=== PATIENT | female | born 1960 | race African-American/Black ===

== ENCOUNTER 2017-11-15 12:20 | Day surgery (SDC) | payer BC ==
[2017-11-14 08:47] VITALS: BMI 25.8
[~2017-11-15 12:20] MED LIST: LACTATED RINGERS 1,000 ML IV SCH
[2017-11-15 13:15] VITALS: RESP 16; TEMP 97.9
[2017-11-15] MEDS ORDERED: LIDOCAINE 1% 20 ML VIAL (10MG/ML) FOR IV START INTRADERMA ONE (13:19)
[2017-11-15] MEDS ORDERED: PROPOFOL 10 MG/ML 20 ML VIAL IV ONE (13:46)
--- NOTE | 2017-11-15 13:47 | P.GSHP ---
History of Present Illness H&P Date: 11/15/17 Chief Complaint: Screening colonoscopy This is a 57-year-old female referred from Dr. Shannan schaeffer. Patient resents today for screening colonoscopy she denies a significant complaints. Past Medical History Past Medical History: Diabetes Mellitus, Eye Disorder, Hypertension Additional Past Medical History / Comment(s): BILAT GLAUCOMA History of Any Multi-Drug Resistant Organisms: None Reported Past Surgical History: No Surgical Hx Reported Additional Past Surgical History / Comment(s): COLONOSCOPY Past Anesthesia/Blood Transfusion Reactions: No Reported Reaction Smoking Status: Never smoker - Past Family History Mother Family Medical History: No Reported History Medications and Allergies Home Medications Medication Instructions Recorded Confirmed Type Benazepril HCl 10 mg PO DAILY 11/14/17 11/15/17 History Latanoprost Ophth [Xalatan 0.005%] 1 drop BOTH EYES HS 11/14/17 11/15/17 History amLODIPine BESYLATE [Norvasc] 2.5 mg PO DAILY 11/14/17 11/15/17 History metFORMIN HCL [Glucophage Xr] 500 mg PO DAILY 11/14/17 11/15/17 History Allergies Allergy/AdvReac Type Severity Reaction Status Date / Time Penicillins Allergy Rash/Hives Verified 11/14/17 08:42 Surgical - Exam Vital Signs Temp Pulse Resp BP Pulse Ox 97.9 F 91 16 152/84 100 11/15/17 13:08 11/15/17 13:08 11/15/17 13:08 11/15/17 13:08 11/15/17 13:08 - General well developed, no distress - Eyes PERRL - ENT normal pinna - Neck no masses - Respiratory normal expansion - Cardiovascular Rhythm: regular - Abdomen Abdomen: soft, non tender Assessment and Plan Assessment: We'll perform screening colonoscopy.
--- NOTE | 2017-11-15 14:02 | P.OP ---
Date of Procedure: 11/15/17 Preoperative Diagnosis: Screening colonoscopy Postoperative Diagnosis: Submucosal cecal lipoma Procedure(s) Performed: Colonoscopy Anesthesia: MAC Surgeon: Dillon Chapman Pathology: other (Cecal lipoma) Condition: stable Disposition: PACU Description of Procedure: The patient's placed on the endoscopy table lateral position. She received IV sedation. The digital rectal exam was performed which revealed no rebound. The flexible colonoscope was then placed patient anus passed throughout the entire colon. The ileocecal valve was visually is. The cecum there was a submucosal lipoma. This area is biopsied. The scope was withdrawn and the remainder ascending, transverse and descending and sigmoid colon was normal. Scope was brought back the rectum this appeared normal. Scope was withdrawn for patient.
[2017-11-15 14:21] VITALS: BP 143/87; PULSE 78
== END 2017-11-15 14:44 | disposition home or self-care (01) ==
LOC: ORWHC2ENDO 12:20
PROVIDERS: ATTEND Surgery
DX: Z12.11 Encounter for screening for malignant neoplasm of colon (principal); I10 Essential (primary) hypertension; D17.79 Benign lipomatous neoplasm of other sites; E11.9 Type 2 diabetes mellitus without complications; Z79.84 Long term (current) use of oral hypoglycemic drugs; H40.9 Unspecified glaucoma; Z79.899 Other long term (current) drug therapy
CPT/HCPCS: 88305; 45380; J2704

== ENCOUNTER 2018-11-26 23:31 | Emergency (ER) | payer BC ==
[2018-11-26 23:49] VITALS: TEMP 98.3
[2018-11-27 00:48] VITALS: BP 130/88; PULSE 72; RESP 20
[2018-11-27 00:48] LABS: Basophils % (A) 0 %; Eosinophils # (A) 0.1 k/uL (0-0.7); Eosinophils % (A) 2 %; HCT 42.1 % (34.0-46.0); HGB 13.2 gm/dL (11.4-16.0); Lymphocytes # (A) 2.1 k/uL (1.0-4.8); Lymphocytes % (A) 39 %; MCH 27.6 pg (25.0-35.0); MCHC 31.5 g/dL (31.0-37.0); MCV 87.6 fL (80.0-100.0); Mean Platelet Volume 8.1; Monocytes # (A) 0.2 k/uL (0-1.0); Monocytes % (A) 4 %; Neutrophils # (A) 2.9 k/uL (1.3-7.7); Neutrophils % (A) 53 %; Platelet Count 203 k/uL (150-450); RDW 13.6 % (11.5-15.5); WBC 5.5 k/uL (3.8-10.6)
[2018-11-27 00:57] LABS: ALT 25 U/L (9-52); AST 21 U/L (14-36); Albumin 4.6 g/dL (3.5-5.0); Alkaline Phosphatase 89 U/L (38-126); Anion Gap 10 mmol/L; Blood Urea Nitrogen 15 mg/dL (7-17); Calcium 11.1 mg/dL (8.4-10.2); Carbon Dioxide 27 mmol/L (22-30); Chloride 105 mmol/L (98-107); Glucose 116 mg/dL (74-99); Sodium 142 mmol/L (137-145); Total Bilirubin 0.5 mg/dL (0.2-1.3); Total Protein 7.9 g/dL (6.3-8.2)
--- NOTE | 2018-11-27 01:41 | ED ---
General Adult HPI - General Chief complaint: ENT Stated complaint: Twitch in jaw Time Seen by Provider: 11/27/18 00:11 Source: patient, RN notes reviewed, old records reviewed Mode of arrival: ambulatory Limitations: no limitations - History of Present Illness Initial comments: 58-year-old female patient past medical history of hypertension, type 2 diabetes presents to ER with left jaw muscle twitching. Patient states that she experienced this approximately one hour prior to presentation to ER. Patient states that she expresses for approximately 20 minutes. Patient denies any other complaints today. Patient currently asymptomatic. Patient states that she evaluated herself thoroughly. Patient denies any altered mental status, facial droop, paresthesias, upper or lower extremity weakness, dysfunction, paresthesias. Patient denies other complaints. Systemic: Pt denies fatigue, myalgia, fever/chills, rash. Pt denies weakness, night sweats, weight loss. Neuro: Pt denies headache, visual disturbances, syncope or pre-syncope. HEENT: Pt denies ocular discharge or irritation, otalgia, rhinorrhea, pharyngitis or notable lymphadenopathy. Cardiopulmonary: Pt denies chest pain, SOB, heart palpitations, dyspnea on exertion. Abdominal/GI: Pt denies abdominal pain, n/v/d. : Pt denies dysuria, burning w/ urination, frequency/urgency. Denies new onset urinary or bowel incontinence. MSK: Pt denies myalgia, loss of strength or function in extremities. Neuro: Pt denies new onset weakness, paresthesias. - Related Data Home Medications Medication Instructions Recorded Confirmed Benazepril HCl 10 mg PO DAILY 11/14/17 11/15/17 Latanoprost Ophth [Xalatan 0.005%] 1 drop BOTH EYES HS 11/14/17 11/15/17 amLODIPine BESYLATE [Norvasc] 2.5 mg PO DAILY 11/14/17 11/15/17 metFORMIN HCL [Glucophage Xr] 500 mg PO DAILY 11/14/17 11/15/17 Allergies Allergy/AdvReac Type Severity Reaction Status Date / Time Penicillins Allergy Rash/Hives Verified 11/26/18 23:50 Review of Systems ROS Statement: Those systems with pertinent positive or pertinent negative responses have been documented in the HPI. ROS Other: All systems not noted in ROS Statement are negative. Past Medical History Past Medical History: Diabetes Mellitus, Eye Disorder, Hypertension Additional Past Medical History / Comment(s): BILAT GLAUCOMA, History of Any Multi-Drug Resistant Organisms: None Reported Past Surgical History: No Surgical Hx Reported Additional Past Surgical History / Comment(s): COLONOSCOPY, Past Anesthesia/Blood Transfusion Reactions: No Reported Reaction Past Psychological History: No Psychological Hx Reported Smoking Status: Never smoker Past Alcohol Use History: None Reported Past Drug Use History: None Reported - Past Family History Mother Family Medical History: No Reported History General Exam - General Exam Comments Initial Comments: Constitutional: NAD, AOX3, Pt has pleasant affect. HEENT: NC/AT, trachea midline, neck supple, no lymphadenopathy. Posterior pharynx non erythematous, without exudates. External ears appear normal, without discharge. Mucous membranes moist. Eyes PERRLA, EOM intact. There is no scleral icterus. No pallor noted. Cardiopulmonary: RRR, no murmurs, rubs or gallops, no JVD noted. Lungs CTAB in anterior and posterior engle. No peripheral edema. Abdominal exam: Abdomen soft and non-distended. Abdomen non-tender to palpation in all 4 quadrants. Bowel sounds active in LLQ. No hepatosplenomegaly. No ecchymosis Neuro: CN II-XII intact. No nuchal rigidity. No focal deficit of facial droop. Full active range of motion in upper and lower extremities. Sensation intact. MSK: No posterior calf tenderness bilaterally, homans sign negative bilaterally. Posterior tibialis and radial pulse +2 bilaterally. Sensation intact in upper and lower extremities. Full active ROM in upper and lower extremities, 5/5 stregnth. Limitations: no limitations Course Vital Signs 11/26/18 11/27/18 23:47 00:48 Temperature 98.3 F Pulse Rate 77 72 Respiratory 17 20 Rate Blood Pressure 177/92 130/88 O2 Sat by Pulse 100 97 Oximetry Medical Decision Making - Medical Decision Making 58-year-old female patient past medical history of hypertension, type 2 diabetes presents to ER with left jaw muscle twitching. Patient states that she experienced this approximately one hour prior to presentation to ER. Patient states that she expresses for approximately 20 minutes. Patient denies any other complaints today. Patient currently asymptomatic. Patient states that she evaluated herself thoroughly. Patient denies any altered mental status, facial droop, paresthesias, upper or lower extremity weakness, dysfunction, paresthesias. Patient denies other complaints. Patient vital signs stable, afebrile. Physical exam displayed: CN II-XII intact. No nuchal rigidity. No focal deficit of facial droop. Full active range of motion in upper and lower extremities. Sensation intact. Laboratory investigations revealed noncompressive CBC, CMP revealed mildly elevated calcium of 11.1. Calcium comparable to previous laboratory investigation of 2016. Repeat neurologic exam within normal limits. Patient discharged. Patient to follow up with primary care provider in 1-2 days. Patient return to ER if condition worsens in any way. Return precautions. Case discussed with Dr. Thornton. - Lab Data Result diagrams: 11/27/18 00:40 11/27/18 00:40 Lab Results 11/27/18 11/27/18 Range/Units 00:40 00:40 WBC 5.5 (3.8-10.6) k/uL RBC 4.80 (3.80-5.40) m/uL Hgb 13.2 (11.4-16.0) gm/dL Hct 42.1 (34.0-46.0) % MCV 87.6 (80.0-100.0) fL MCH 27.6 (25.0-35.0) pg MCHC 31.5 (31.0-37.0) g/dL RDW 13.6 (11.5-15.5) % Plt Count 203 (150-450) k/uL Neutrophils % 53 % Lymphocytes % 39 % Monocytes % 4 % Eosinophils % 2 % Basophils % 0 % Neutrophils # 2.9 (1.3-7.7) k/uL Lymphocytes # 2.1 (1.0-4.8) k/uL Monocytes # 0.2 (0-1.0) k/uL Eosinophils # 0.1 (0-0.7) k/uL Basophils # 0.0 (0-0.2) k/uL Sodium 142 (137-145) mmol/L Potassium 4.0 (3.5-5.1) mmol/L Chloride 105 (98-107) mmol/L Carbon Dioxide 27 (22-30) mmol/L Anion Gap 10 mmol/L BUN 15 (7-17) mg/dL Creatinine 0.80 (0.52-1.04) mg/dL Est GFR (CKD-EPI)AfAm >90 (>60 ml/min/1.73 sqM) Est GFR (CKD-EPI)NonAf 82 (>60 ml/min/1.73 sqM) Glucose 116 H (74-99) mg/dL Calcium 11.1 H (8.4-10.2) mg/dL Total Bilirubin 0.5 (0.2-1.3) mg/dL AST 21 (14-36) U/L ALT 25 (9-52) U/L Alkaline Phosphatase 89 (38-126) U/L Total Protein 7.9 (6.3-8.2) g/dL Albumin 4.6 (3.5-5.0) g/dL Disposition Clinical Impression: Muscle spasm Disposition: HOME SELF-CARE Condition: Stable Instructions (If sedation given, give patient instructions): Muscle Spasm (ED) Additional Instructions: Patient to adhere to previously discussed treatment plan and will take medication(s) as directed. Patient to follow up with PCP in 1-2 days. Patient to return to ED if symptoms do not improve. Please follow-up with primary care provider in 1-2 days. Please return to ER if condition worsens in any way. Strict return precautions. Is patient prescribed a controlled substance at d/c from ED?: No Referrals: Shannan Garza DO [Primary Care Provider] - 1-2 days
== END 2018-11-27 01:46 | disposition home or self-care (01) ==
LOC: EC 23:31
DX: M62.838 Other muscle spasm (principal); R25.3 Fasciculation; E11.9 Type 2 diabetes mellitus without complications; I10 Essential (primary) hypertension; H40.9 Unspecified glaucoma; Z79.84 Long term (current) use of oral hypoglycemic drugs; Z79.899 Other long term (current) drug therapy; Z88.0 Allergy status to penicillin
CPT/HCPCS: 36415; 80053; 85025; 99284

== ENCOUNTER → 2019-02-14 | Outpatient (CLI) | payer BC ==
--- NOTE | 2019-02-14 16:25 | NM ---
EXAMINATION TYPE: NM parathyroid w/SPECT DATE OF EXAM: 02/14/2019 COMPARISON: NONE HISTORY: 58-year-old female hypercalcemia. TECHNIQUE: Following administration of 24 mCi Tc99m Sestamibi. Anterior projection images of the neck and chest were obtained 10 minutes and 3 hours post injection. SPECT images of the neck and chest were obtaine d and reconstructed in three axes. FINDINGS: Thyroid tracer washout: Delayed images demonstrate near-complete tracer washout from the thyroid. Parathyroid uptake: The two-hour delayed images demonstrate focal abnormal persistent uptake at the r ight lower thyroid lobe. Normal uptake: There is physiological tracer uptake in the salivary glands and thyroid gland. IMPRESSION: Persistent abnormal uptake localized to the lower right thyroid lobe suggestive of parathyroid adenom a.
== END | disposition home or self-care (01) ==
LOC: RADNMMAIN 11:16
PROVIDERS: ATTEND Family Medicine
DX: E83.52 Hypercalcemia (principal); Z88.0 Allergy status to penicillin
CPT/HCPCS: 78071; A9500

== ENCOUNTER → 2019-06-10 | Outpatient (CLI) | payer OTHER ==
[2019-06-10 14:19] LABS: Creatinine 24 Hour,Urine 1499.3 mg/24hr (800.0-1800.0)
[2019-06-11 00:16] LABS: Total Volume 24 Hour,Urine 1450 mL
[2019-06-11 00:35] LABS: Calcium 24 Hour,Urine 355.3 mg/24Hr (100.0-250.0)
== END | disposition home or self-care (01) ==
LOC: LABWHC1 07:33
PROVIDERS: ATTEND Surgery
DX: E83.52 Hypercalcemia (principal)
CPT/HCPCS: 36415; 81050; 82340; 82575; 84156

== ENCOUNTER 2019-10-31 06:02 | Day surgery (SDC) | payer BC, OTHER ==
[2019-10-29 11:35] VITALS: BMI 25.8
[~2019-10-31 06:02] MED LIST changes: +DEXAMETHASONE SOD PHOSPHATE 10 MG/ML 1 ML VIAL IV ONE; +HEPARIN SODIUM,PORCINE 5,000 UNIT/ML 1 ML VIAL SQ ONE; +LIDOCAINE 1% (10MG/ML) FOR IV START INTRADERMA PRN; +MIDAZOLAM 2 MG/2 ML VIAL IV PRN; +fentaNYL (PF) 50 MCG/ML 2 ML AMP IV PRN
[2019-10-31] MEDS ORDERED: ONDANSETRON 4 MG/2 ML VIAL IVP ONE ×2 (06:49→09:55)
[2019-10-31 06:55] LABS: Glucose,Whole Blood 101 mg/dL (75-99)
[2019-10-31] MEDS ORDERED: NEOSTIGMINE 1 MG/ML 10 ML VIAL ONE (07:49)
[2019-10-31] MEDS ORDERED: MIDAZOLAM 2 MG/2 ML VIAL ONE (07:49)
[2019-10-31] MEDS ORDERED: SUCCINYLCHOLINE CHLORIDE 100 MG/5 ML SYR IV ONE (07:49)
[2019-10-31] MEDS ORDERED: ROCURONIUM BROMIDE 10 MG/ML 5 ML VIAL IV ONE (07:49)
[2019-10-31] MEDS ORDERED: KETOROLAC 30 MG/ML 1 ML VIAL ONE (07:49)
[2019-10-31] MEDS ORDERED: GLYCOPYRROLATE 0.2 MG/ML 2 ML VIAL ONE (07:49)
[2019-10-31] MEDS ORDERED: fentaNYL (PF) 50 MCG/ML 2 ML AMP ONE (07:49)
[2019-10-31] MEDS ORDERED: PROPOFOL 10 MG/ML 20 ML VIAL IV ONE (07:49)
[2019-10-31] MEDS ORDERED: LIDOCAINE 1% INJ 10MG/ML (20 ML MDV) ONE (07:49)
--- NOTE | 2019-10-31 07:56 | P.GSHP ---
History of Present Illness H&P Date: 10/31/19 Chief Complaint: Right upper quadrant pain This a 59-year-old female who presents today for laparoscopic ostectomy. Patient's a quadrant quadrant pain. Her recent ultrasound shows evidence of cholelithiasis. Past Medical History Past Medical History: Diabetes Mellitus, Eye Disorder, Hypertension, Thyroid Disorder Additional Past Medical History / Comment(s): BILAT GLAUCOMA, hx parathyroid problem. Gallstones currently. History of Any Multi-Drug Resistant Organisms: None Reported Past Surgical History: No Surgical Hx Reported Additional Past Surgical History / Comment(s): COLONOSCOPY, Parathyroid procedure, kidney stone proc Past Anesthesia/Blood Transfusion Reactions: No Reported Reaction Smoking Status: Never smoker - Past Family History Mother Family Medical History: No Reported History Medications and Allergies Home Medications Medication Instructions Recorded Confirmed Type Benazepril HCl 10 mg PO DAILY 11/14/17 10/31/19 History Latanoprost Ophth [Xalatan 0.005%] 1 drop BOTH EYES HS 11/14/17 10/31/19 History amLODIPine BESYLATE [Norvasc] 2.5 mg PO DAILY 11/14/17 10/31/19 History metFORMIN HCL [Glucophage Xr] 500 mg PO DAILY 11/14/17 10/31/19 History Multivitamins, Thera [Multivitamin 1 tab PO DAILY 10/29/19 10/31/19 History (formulary)] Allergies Allergy/AdvReac Type Severity Reaction Status Date / Time Penicillins Allergy Rash/Hives Verified 10/31/19 06:35 Surgical - Exam Vital Signs Temp Pulse Resp BP Pulse Ox 98.1 F 84 16 151/69 100 10/31/19 06:40 10/31/19 06:40 10/31/19 06:40 10/31/19 06:40 10/31/19 06:40 - General well developed, well nourished, no distress - Eyes PERRL - ENT normal pinna - Neck no masses - Respiratory normal expansion - Cardiovascular Rhythm: regular - Abdomen Abdomen: soft, non tender Results - Labs Abnormal Lab Results - Last 24 Hours (Table) 10/31/19 Range/Units 06:44 POC Glucose (mg/dL) 101 H (75-99) mg/dL Assessment and Plan Assessment: Lithiasis. We'll perform laparoscopic cholecystectomy
[2019-10-31] MEDS ORDERED: BUPIVACAINE (PF) 0.5% 30 ML VIAL SQ ONE (08:15)
[2019-10-31 08:52] VITALS: TEMP 97.3
[2019-10-31 09:06] LABS: Glucose,Whole Blood 125 mg/dL (75-99)
--- NOTE | 2019-10-31 09:08 | P.OP ---
Date of Procedure: 10/31/19 Preoperative Diagnosis: Cholelithiasis Cholecystitis Postoperative Diagnosis: Cholelithiasis] Cholecystitis Procedure(s) Performed: Laparoscopic cholecystectomy Anesthesia: TY LLANES Surgeon: Dillon Chapman Estimated Blood Loss (ml): 5 Pathology: other (Gallbladder) Condition: stable Disposition: PACU Description of Procedure: The patient was placed on the operating table. The patient received a general endotracheal tube anesthesia. The patients abdomen was prepped and draped in the usual sterile fashion. Through an infraumbilical stab incision, the fascia of the anterior abdominal wall was grasped with a pair of Kochers and then the Veress needle was placed in the peritoneal cavity. Position of the Veress needle was confirmed with positive drop test. The abdomen was then insufflated. After adequate insufflation, the 10 mm trocar was placed in the peritoneal cavity. Following this the laparoscope was placed in the peritoneal cavity. The patient was placed in the head-up, right side up position and then a 5 mm trocar was placed in the right lateral and right subcostal position under direct visualization. A 8 mm trocar was placed in the epigastric position. The gallbladder was grasped in the fundus and infundibulum. Traction on the gallbladder was placed in the lateral and the cephalad positions. The triangle of Calot was visualized.. The cystic duct was bluntly dissected until the union of the cystic duct and common bile duct was seen. A critical view of safety was achieved. The cystic duct was then divided and sealed with the Harmonic scissors. A PDS Endoloop was then placed throughout the cystic duct stump. The cystic artery divided and sealed with the Harmonic scissors. The gallbladder was then removed from the liver bed using Harmonic scissors. The gallbladder was then extracted through the epigastric port site. Operative field was checked for any bleeding spots and Harmonic scissors was used to coagulate the liver bed. The abdomen was irrigated. The trocars were removed. The skin was closed using interrupted 3-0 Vicryl suture. Dermabond dressing were applied. The patient tolerated the procedure well.
[2019-10-31] MEDS ORDERED: HYDROcodone/APAP 5-325MG 1 EACH TAB PO ONE (10:08)
[2019-10-31] MEDS ORDERED: LACTATED RINGERS 1,000 ML IV ONE (10:34)
[2019-10-31 10:35] VITALS: BP 122/74; PULSE 77; RESP 18
== END 2019-10-31 10:40 | disposition home or self-care (01) ==
LOC: OR 06:02
PROVIDERS: ATTEND Surgery
DX: K80.10 Calculus of gallbladder with chronic cholecystitis without obstruction (principal); E11.9 Type 2 diabetes mellitus without complications; I10 Essential (primary) hypertension; H40.9 Unspecified glaucoma; E07.9 Disorder of thyroid, unspecified; Z79.899 Other long term (current) drug therapy; Z79.84 Long term (current) use of oral hypoglycemic drugs; Z88.0 Allergy status to penicillin; Z98.890 Other specified postprocedural states
CPT/HCPCS: 88304; 47562; J2250; J1644; J1100; J2710; J0690; J2405; J2001; J3010; J1885; J0330; J2704

== ENCOUNTER 2020-03-19 07:43 | Day surgery (SDC) | payer BC ==
[2020-03-17 15:40] VITALS: BMI 26.6
[~2020-03-19 07:43] MED LIST changes: -DEXAMETHASONE SOD PHOSPHATE 10 MG/ML 1 ML VIAL IV ONE; -HEPARIN SODIUM,PORCINE 5,000 UNIT/ML 1 ML VIAL SQ ONE; -LIDOCAINE 1% (10MG/ML) FOR IV START INTRADERMA PRN; -MIDAZOLAM 2 MG/2 ML VIAL IV PRN; -fentaNYL (PF) 50 MCG/ML 2 ML AMP IV PRN
[2020-03-19 08:05] VITALS: RESP 16; TEMP 98.8
[2020-03-19] MEDS ORDERED: LIDOCAINE 1% (10MG/ML) FOR IV START INTRADERMA ONE (08:16)
[2020-03-19 08:19] LABS: Glucose,Whole Blood 111 mg/dL (75-99)
[2020-03-19] MEDS ORDERED: fentaNYL (PF) 50 MCG/ML 2 ML AMP ONE (08:47)
[2020-03-19] MEDS ORDERED: LIDOCAINE 1% INJ 10MG/ML (20 ML MDV) ONE (08:47)
[2020-03-19] MEDS ORDERED: MIDAZOLAM 2 MG/2 ML VIAL ONE (08:47)
[2020-03-19] MEDS ORDERED: PROPOFOL 10 MG/ML 20 ML VIAL IV ONE (08:47)
--- NOTE | 2020-03-19 08:53 | P.GSHP ---
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 Patient's complaints of GERD and epigastric pain. Past Medical History Past Medical History: Diabetes Mellitus, Eye Disorder, Hypertension Additional Past Medical History / Comment(s): GLAUCOMA, hx parathyroid surgery., constipation., states stomach aches . History of Any Multi-Drug Resistant Organisms: None Reported Past Surgical History: No Surgical Hx Reported, Cholecystectomy Additional Past Surgical History / Comment(s): COLONOSCOPY, Parathyroid procedure, kidney stone proc Past Anesthesia/Blood Transfusion Reactions: No Reported Reaction Past Psychological History: No Psychological Hx Reported Smoking Status: Never smoker Past Alcohol Use History: None Reported Past Drug Use History: None Reported - Past Family History Mother Family Medical History: No Reported History Medications and Allergies Home Medications Medication Instructions Recorded Confirmed Type Benazepril HCl 10 mg PO DAILY 11/14/17 03/19/20 History Latanoprost Ophth [Xalatan 0.005%] 1 drop BOTH EYES HS 11/14/17 03/19/20 History metFORMIN HCL [Glucophage Xr] 500 mg PO DAILY 11/14/17 03/19/20 History amLODIPine BESYLATE 5 mg PO DAILY 03/17/20 03/19/20 History Allergies Allergy/AdvReac Type Severity Reaction Status Date / Time Penicillins Allergy Rash/Hives Verified 03/19/20 08:03 Surgical - Exam Vital Signs Temp Pulse Resp BP Pulse Ox 98.8 F 80 16 157/70 99 03/19/20 07:58 03/19/20 07:58 03/19/20 07:58 03/19/20 07:58 03/19/20 07:58 - General well developed, well nourished, no distress - Eyes PERRL - ENT normal pinna - Neck no masses - Respiratory normal expansion - Cardiovascular Rhythm: regular - Abdomen Abdomen: soft, non tender Results - Labs Abnormal Lab Results - Last 24 Hours (Table) 03/19/20 Range/Units 08:13 POC Glucose (mg/dL) 111 H (75-99) mg/dL Assessment and Plan Assessment: GERD, gastric pain. We'll perform EGD.
--- NOTE | 2020-03-19 08:58 | P.OP ---
Date of Procedure: 03/19/20 Preoperative Diagnosis: GERD Postoperative Diagnosis: Mild antral gastritis Mild esophagitis No evidence of hiatal hernia Procedure(s) Performed: EGD Anesthesia: MAC Surgeon: Dillon Chapman Pathology: other (Antrum, esophagus) Condition: stable Disposition: PACU Description of Procedure: Patient's placed on the endoscopy table in the lateral position. She received IV suture. Gastric was placed oropharynx passed in the esophagus and stomach. Scope was placed through the pylorus. The first and second portion of the duodenum appeared normal. Scope was then brought back the antrum this. Mildly inflamed. A biopsies performed. The scope was unretroflexed and remainder some appeared normal. The GE junction was at 40 cm. There was no significant hiatal hernia. The distal esophagus. Inflamed a biopsies performed the proximal esophagus appeared normal.
[2020-03-19 09:37] VITALS: BP 129/77; PULSE 64
== END 2020-03-19 09:46 | disposition home or self-care (01) ==
LOC: ORWHC2ENDO 07:43
PROVIDERS: ATTEND Surgery
DX: K29.50 Unspecified chronic gastritis without bleeding (principal); K21.9 Gastro-esophageal reflux disease without esophagitis; E11.9 Type 2 diabetes mellitus without complications; I10 Essential (primary) hypertension; H40.9 Unspecified glaucoma; R10.9 Unspecified abdominal pain; Z90.49 Acquired absence of other specified parts of digestive tract; Z98.890 Other specified postprocedural states; Z87.442 Personal history of urinary calculi; Z79.899 Other long term (current) drug therapy; Z88.0 Allergy status to penicillin
CPT/HCPCS: 88305; 43239; J2250; J2001; J3010; J2704

== ENCOUNTER 2020-07-03 16:00 | Emergency (ER) | payer BC ==
--- NOTE | 2020-07-03 18:35 | XR ---
EXAMINATION TYPE: XR femur RT DATE OF EXAM: 07/03/2020 COMPARISON: NONE HISTORY: Leg pain TECHNIQUE: 4 views FINDINGS: The knee joint is intact. Hip joint is intact. There is no sign of hip dysplasia. I see no fracture nor dislocation. There is no sign of knee joint effusion. IMPRESSION: Negative right femur exam.
--- NOTE | 2020-07-03 18:36 | XR ---
EXAMINATION TYPE: XR lumbar spine 2 or 3V DATE OF EXAM: 07/03/2020 COMPARISON: NONE HISTORY: Back pain TECHNIQUE: 4 views FINDINGS: Lumbar vertebra have normal alignment. Posterior elements are intact. There is no compressi on fracture. Sacroiliac joints are intact. IMPRESSION: Negative lumbar spine exam.
--- NOTE | 2020-07-03 19:05 | US ---
EXAMINATION TYPE: US venous doppler duplex LE RT DATE OF EXAM: 07/03/2020 6:55 PM COMPARISON: NONE CLINICAL HISTORY: pain. Intermittent right thigh pain x couple weeks SIDE PERFORMED: Right TECHNIQUE: The lower extremity deep venous system is examined utilizing real time linear array sonog dennis with graded compression, doppler sonography and color-flow sonography. VESSELS IMAGED: External Iliac Vein (EIV) Common Femoral Vein Deep Femoral Vein Greater Saphenous Vein * Femoral Vein Popliteal Vein Small Saphenous Vein * Proximal Calf Veins (* superficial vessels) Right Leg: Appears negative for DVT IMPRESSION: No sign of deep vein thrombosis in the right leg.
[2020-07-03] MEDS ORDERED: predniSONE 20 MG TAB PO STA (19:15)
--- NOTE | 2020-07-03 19:15 | ED ---
General Adult HPI - General Chief complaint: Extremity Injury, Lower Stated complaint: Pain in upper right leg Time Seen by Provider: 07/03/20 17:34 Source: patient, RN notes reviewed, old records reviewed Mode of arrival: ambulatory Limitations: no limitations - History of Present Illness Initial comments: 59-year-old female patient to ED for evaluation of right anterior thigh pain. She reports that the last week or so she's been having some waxing and waning sharp pain in her right anterior thigh. She also reports that she sometimes has some pain in her paralumbar region reading down the posterior gluteal region down the leg. Denies any weakness. Saddle anesthesia loss of bowel or bladder control recent falls or trauma. Systemic: Pt denies fatigue, fever/chills, rash. Pt denies weakness, night sweats, weight loss. Neuro: Pt denies headache, visual disturbances, syncope or pre-syncope. HEENT: Pt denies ocular discharge or irritation, otalgia, rhinorrhea, pharyngitis or notable lymphadenopathy. Cardiopulmonary: Pt denies chest pain, SOB, heart palpitations, dyspnea on exertion. Abdominal/GI: Pt denies abdominal pain, n/v/d. : Pt denies dysuria, burning w/ urination, frequency/urgency. Denies new onset urinary or bowel incontinence. MSK: Pt denies loss of strength or function in extremities. Neuro: Pt denies new onset weakness, paresthesias. - Related Data Home Medications Medication Instructions Recorded Confirmed Benazepril HCl 10 mg PO DAILY 11/14/17 03/19/20 Latanoprost Ophth [Xalatan 0.005%] 1 drop BOTH EYES HS 11/14/17 03/19/20 metFORMIN HCL [Glucophage Xr] 500 mg PO DAILY 11/14/17 03/19/20 amLODIPine BESYLATE 5 mg PO DAILY 03/17/20 03/19/20 Previous Rx's Medication Instructions Recorded predniSONE [Deltasone] 20 mg PO BID 4 Days #8 tab 07/03/20 Allergies Allergy/AdvReac Type Severity Reaction Status Date / Time Penicillins Allergy Rash/Hives Verified 07/03/20 16:13 Review of Systems ROS Statement: Those systems with pertinent positive or pertinent negative responses have been documented in the HPI. ROS Other: All systems not noted in ROS Statement are negative. Past Medical History Past Medical History: Diabetes Mellitus, Eye Disorder, Hypertension Additional Past Medical History / Comment(s): GLAUCOMA, hx parathyroid surgery., constipation., states stomach aches . History of Any Multi-Drug Resistant Organisms: None Reported Past Surgical History: Cholecystectomy Additional Past Surgical History / Comment(s): COLONOSCOPY, Parathyroid procedure, kidney stone proc Past Anesthesia/Blood Transfusion Reactions: No Reported Reaction Past Psychological History: No Psychological Hx Reported Smoking Status: Never smoker Past Alcohol Use History: None Reported Past Drug Use History: None Reported - Past Family History Mother Family Medical History: No Reported History General Exam - General Exam Comments Initial Comments: Constitutional: NAD, AOX3, Pt has pleasant affect. HEENT: NC/AT, trachea midline, neck supple, no lymphadenopathy. Posterior pharynx non erythematous, without exudates. External ears appear normal, without discharge. Mucous membranes moist. Eyes PERRLA, EOM intact. There is no scleral icterus. No pallor noted. Cardiopulmonary: RRR, no murmurs, rubs or gallops, no JVD noted. Lungs CTAB in anterior and posterior engle. No peripheral edema. Abdominal exam: Abdomen soft and non-distended. Abdomen non-tender to palpation in all 4 quadrants. Bowel sounds active in LLQ. No hepatosplenomegaly. No ecchymosis Neuro: CN II-XII grossly intact. No nuchal rigidity. No raccon eyes, no estevez sign, no hemotympanum. No cervical spinal tenderness. MSK: Anterior thigh nontender to palpation with no skin changes. No posterior calf tenderness bilaterally, homans sign negative bilaterally. Posterior tibialis and radial pulse +2 bilaterally. Sensation intact in upper and lower extremities. Full active ROM in upper and lower extremities, 5/5 stregnth. Limitations: no limitations Course Vital Signs 07/03/20 16:09 Temperature 97.1 F L Pulse Rate 91 Respiratory 20 Rate Blood Pressure 171/97 O2 Sat by Pulse 100 Oximetry Medical Decision Making - Medical Decision Making 59-year-old female patient to ED for anterior thigh pain. No current discomfort at this time. Patient also stable, afebrile. Patient reports that she just had all over her blood counts and chemisties checked by her PCP on monday and it was normal. Physical exam negative for acute pathology. She does report however that she also having pain radiating down the posterior aspect of her leg in the gluteal region. As well as some back pain. I will place patient on burst steroid treatment lumbar back pain with sciatica like radiculopathy. Will return with worsening symptoms. Case disucssed with Dr. Mar. Disposition Clinical Impression: Leg pain, Back pain Disposition: HOME SELF-CARE Condition: Stable Instructions (If sedation given, give patient instructions): Sciatica (ED), Acute Low Back Pain (ED), Leg Pain (ED) Additional Instructions: Follow up with PCP tomorrow. Take steroids as directed. Return to ED with any worsening symptoms. Prescriptions: predniSONE [Deltasone] 20 mg PO BID 4 Days #8 tab Is patient prescribed a controlled substance at d/c from ED?: No Referrals: Shannan Garza DO [Primary Care Provider] - 1-2 days
[2020-07-03 19:39] VITALS: BP 148/68; PULSE 69; RESP 18; TEMP 98.2
== END 2020-07-03 19:39 | disposition home or self-care (01) ==
LOC: EC 16:00
DX: M79.651 Pain in right thigh (principal); M54.5 Low back pain; I10 Essential (primary) hypertension; E11.9 Type 2 diabetes mellitus without complications; Z79.84 Long term (current) use of oral hypoglycemic drugs; Z88.0 Allergy status to penicillin
CPT/HCPCS: 72100; 73552; 93971; 99284; J7512

== ENCOUNTER → 2020-11-25 | Outpatient (CLI) | payer BC ==
--- NOTE | 2020-11-25 14:31 | CT ---
EXAMINATION TYPE: CT brain w con DATE OF EXAM: 11/25/2020 COMPARISON: None HISTORY: NATH, blurred vision, lightheaded CT DLP: 1004.4 mGycm Automated exposure control for dose reduction was used. CONTRAST: CT scan of the head is performed with IV Contrast, patient injected with 100 mL of Isovue 300. FINDINGS: There is no abnormal enhancing mass or midline shift identified. The ventricles and sulci are within normal limits in size. The globes are intact and the visualized sinuses are clear. IMPRESSION: Negative contrast enhanced head CT exam.
== END | disposition home or self-care (01) ==
LOC: RADCTMAIN 13:07
PROVIDERS: ATTEND Family Medicine
DX: R51.9 Headache, unspecified (principal)
CPT/HCPCS: 82565; 84520; 70460; Q9967

== ENCOUNTER → 2021-07-01 | Outpatient (CLI) | payer BC ==
--- NOTE | 2021-07-01 21:36 | MR ---
EXAMINATION TYPE: MR lumbar spine wo con DATE OF EXAM: 07/01/2021 COMPARISON: None HISTORY: Low back pain that goes down right leg, 1 year CONTRAST: 0 mL intravenous Gadavist. TECHNIQUE: Multiplanar, multisequence images of the lumbar spine were acquired. FINDINGS: Disc heights are preserved. Vertebral body heights are preserved. Alignment is normal. No focal disc herniations or significant disc bulges are evident. Disc desiccation is present throughout the lumbar spine. L5-S1: No significant disc bulge or disc herniation. No spinal canal stenosis. No foraminal stenosi s. Minimal facet hypertrophy may be present.. L4-L5: No significant disc bulge or disc herniation. No spinal canal stenosis. No foraminal stenosi s. Is mild facet hypertrophy without posterior lateral thecal sac compression.. L3-L4: No significant disc bulge or disc herniation. No spinal canal stenosis. No foraminal stenosi s. . L2-L3: No significant disc bulge or disc herniation. No spinal canal stenosis. No foraminal stenosi s. . L1-L2: No significant disc bulge or disc herniation. No spinal canal stenosis. No foraminal stenosi s. . T12-L1: No significant disc bulge or disc herniation. No spinal canal stenosis. No foraminal stenos is. . IMPRESSION: 1. Mild facet hypertrophy L4-5 and L5-S1 without stenosis. 2. Diffuse disc desiccation
== END | disposition home or self-care (01) ==
LOC: RADMRIMAIN 15:53
PROVIDERS: ATTEND Family Medicine
DX: M89.38 Hypertrophy of bone, other site (principal); M54.16 Radiculopathy, lumbar region
CPT/HCPCS: 72148

== ENCOUNTER 2022-08-30 19:05 | Emergency (ER) | payer BC, OTHER ==
[2022-08-30 19:16] VITALS: RESP 18
[2022-08-30] MEDS ORDERED: ORPHENADRINE 30 MG/ML 2 ML VIAL IM STA (22:18)
[2022-08-30] MEDS ORDERED: KETOROLAC 15 MG/ML 1 ML VIAL IM STA (22:18)
--- NOTE | 2022-08-30 22:23 | ED ---
General Adult HPI - General Chief complaint: Neck Pain/Injury Stated complaint: lt arm/neck pain Time Seen by Provider: 08/30/22 22:02 Source: patient, RN notes reviewed Mode of arrival: ambulatory Limitations: no limitations - History of Present Illness Initial comments: 61-year-old female presents to the emergency Department with complaints of pain that radiates down the left side of her neck into her shoulder and extends to her left arm. Patient states her discomfort began around 4 or 5:00 this evening. Applied a heating pad with no improvement. Did not take any medicines to treat her symptoms. No known aggravating factors. States she gets some relief with applying pressure to the left trapezius. Denies any headache, dizziness, chest pain, shortness of breath, loss of sensation, numbness, tingling, or weakness in the affected extremity. No recent heavy lifting, overhead movement, or injury/trauma. - Related Data Home Medications Medication Instructions Recorded Confirmed Benazepril HCl 10 mg PO DAILY 11/14/17 03/19/20 Latanoprost Ophth [Xalatan 0.005%] 1 drop BOTH EYES HS 11/14/17 03/19/20 metFORMIN HCL [Glucophage Xr] 500 mg PO DAILY 11/14/17 03/19/20 amLODIPine BESYLATE 5 mg PO DAILY 03/17/20 03/19/20 Previous Rx's Medication Instructions Recorded predniSONE [Deltasone] 20 mg PO BID 4 Days #8 tab 07/03/20 Cyclobenzaprine [Flexeril] 5 mg PO TID PRN #15 tablet 08/30/22 Ibuprofen [Motrin] 600 mg PO Q8HR PRN #20 tab 08/30/22 Allergies Allergy/AdvReac Type Severity Reaction Status Date / Time Penicillins Allergy Rash/Hives Verified 08/30/22 19:16 Review of Systems ROS Statement: Those systems with pertinent positive or pertinent negative responses have been documented in the HPI. ROS Other: All systems not noted in ROS Statement are negative. Past Medical History Past Medical History: Diabetes Mellitus, Eye Disorder, Hypertension Additional Past Medical History / Comment(s): GLAUCOMA, hx parathyroid surgery., constipation., states stomach aches . History of Any Multi-Drug Resistant Organisms: None Reported Past Surgical History: Cholecystectomy Additional Past Surgical History / Comment(s): COLONOSCOPY, Parathyroid procedure, kidney stone proc Past Anesthesia/Blood Transfusion Reactions: No Reported Reaction Past Psychological History: No Psychological Hx Reported Smoking Status: Never smoker Past Alcohol Use History: None Reported Past Drug Use History: None Reported - Past Family History Mother Family Medical History: No Reported History General Exam Limitations: no limitations General appearance: alert, in no apparent distress Neck exam: Present: normal inspection, full ROM, other (muscle spasms, left trapezius). Absent: tenderness, meningismus, lymphadenopathy Respiratory exam: Present: normal lung sounds bilaterally. Absent: respiratory distress, wheezes, rales, rhonchi, stridor Cardiovascular Exam: Present: regular rate, normal rhythm, normal heart sounds. Absent: systolic murmur, diastolic murmur, rubs, gallop, clicks GI/Abdominal exam: Present: soft, normal bowel sounds. Absent: distended, tenderness, guarding, rebound, rigid Neurological exam: Present: alert, oriented X3, CN II-XII intact, normal gait Psychiatric exam: Present: normal affect, normal mood Course Vital Signs 08/30/22 08/30/22 19:12 23:25 Temperature 97.4 F L 98.2 F Pulse Rate 84 66 Respiratory 18 18 Rate Blood Pressure 168/82 148/83 O2 Sat by Pulse 99 100 Oximetry - Reevaluation(s) Reevaluation #1: 08/30/22 23:10 Upon reassessment, patient reports feeling improved. States arm is relaxed and able to move more freely. Will discharge home with muscle relaxer and anti- inflammatory. Patient is agreeable with this plan of care. Medical Decision Making - Medical Decision Making 61-year-old female presents to the emergency Department with complaints of pain radiating down the left shoulder and felt spasms in the trapezius. No trauma or injury. No chest pain or anginal symptoms. Lidocaine patch applied. Patient was given Norflex and Toradol IM with improvement. EKG was obtained showing no acute changes findings concerning for ischemia. Patient will be discharged home with a short course of anti-inflammatory and muscle relaxer medications. She is instructed to follow up with her PCP for recheck. Return parameters discussed in detail. Patient verbalizes understanding and agrees with this plan. Attending: [place]. Was pt. sent in by a medical professional or institution? @ -No Did you speak to anyone other than the patient for history? @ -No Did you review nursing and triage notes? @ -Yes, agree Were old charts reviewed? @ -Yes Differential Diagnosis? @ -Cervical radiculopathy, cervical strain, cervical muscle spasm, this is not meant to be an exhaustive list EKG interpreted by me (3pts min.)? @ -EKG is interpreted by me shows no acute findings of ischemia. X-rays interpreted by me (1pt min.)? @ -Not applicable CT interpreted by me (1pt min.)? @ -Not applicable U/S interpreted by me (1pt. min.)? @ -Not applicable What testing was considered but not performed? (CT, X-rays, U/S, labs)? Why? @ -Considered x-ray, though no trauma or injury. What meds were considered but not given? Why? @ -None Did you discuss the management of the patient with other professionals? @ -None Did you reconcile home meds? @ -No Was smoking cessation discussed for >3mins.? @ -No Was critical care preformed (if so, how long)? @ -No Were there social determinants of health that impacted care today? How? (Homelessness, low income, unemployed, alcoholism, drug addiction, transportation, low edu. Level, literacy, decrease access to med. care, halfway, rehab)? @ -No Was there de-escalation of care discussed even if they declined? (Discuss DNR or withdrawal of care, Hospice)? @ -No What co-morbidities impacted this encounter? (DM, HTN, Smoking, COPD, CAD, Cancer, CVA, Hep., AIDS, mental health diagnosis, sleep apnea, morbid obesity)? @No Was patient admitted / discharged? @ -Discharged Undiagnosed new problem with uncertain prognosis? @ -None Drug Therapy requiring intensive monitoring for toxicity (Heparin, Nitro, Ins ulin, Cardizem)? @ -None Were any procedures done? @ -None Diagnosis/symptom? @ -Spasm of cervical paraspinal muscles Acute, or Chronic, or Acute on Chronic? @ -Acute Uncomplicated (without systemic symptoms) or Complicated (systemic symptoms)? @ -Uncomplicated Side effects of treatment? @ -None Exacerbation, Progression, or Severe Exacerbation] @ -No Poses a threat to life or bodily function? @ -No - EKG Data EKG shows normal: sinus rhythm Rate: normal EKG Comments: EKG obtained at 1945 shows sinus rhythm with first-degree AV block. Ventricular rate 67, VT interval 217, QRS duration 91, QT/QTC 385/400. Interpretation abnormal ECG. EKG was compared with previous EKG obtained in 2016 which shows first-degree AV block as well. Per my interpretation, there is no evidence of acute ischemic changes including ST elevation or depression. Disposition Clinical Impression: Spasm of cervical paraspinous muscle Disposition: HOME SELF-CARE Condition: Stable Instructions (If sedation given, give patient instructions): Cervical Radiculopathy (ED) Additional Instructions: Flexeril as a muscle relaxer which can make you groggy. Do not take when he have to drive. May take Motrin if needed for discomfort. Remove lidocaine patch after 12 hours. May apply heat or ice for no more than 20 minutes per hour. Avoid vigorous or strenuous activity. Gentle range of motion exercises with the left arm. Follow-up with your PCP for a recheck in 48 hours. Return to the emergency department with any new, worsening, or concerning symptoms. Prescriptions: Cyclobenzaprine [Flexeril] 5 mg PO TID PRN #15 tablet PRN Reason: Muscle Spasm Ibuprofen [Motrin] 600 mg PO Q8HR PRN #20 tab PRN Reason: Pain Is patient prescribed a controlled substance at d/c from ED?: No Referrals: Shannan Garza DO [Primary Care Provider] - 1-2 days Time of Disposition: 23:13
[2022-08-30] MEDS ORDERED: LIDOCAINE 5% PATCH TOPICAL STA (23:13)
[2022-08-30 23:28] VITALS: BP 148/83; PULSE 66; TEMP 98.2
== END 2022-08-30 23:28 | disposition home or self-care (01) ==
LOC: EC 19:05
DX: M62.838 Other muscle spasm (principal); E11.9 Type 2 diabetes mellitus without complications; I10 Essential (primary) hypertension; Z88.0 Allergy status to penicillin; Z79.84 Long term (current) use of oral hypoglycemic drugs; Z79.899 Other long term (current) drug therapy
CPT/HCPCS: 93005; 99284; 96372 ×2; J2360; J1885

== ENCOUNTER → 2022-11-09 | Outpatient (CLI) | payer OTHER ==
[2022-11-09 15:36] LABS: HCT 40.8 % (37.2-46.3); HGB 13.1 g/dL (12.0-15.0); MCH 28.4 pg (27.0-32.0); MCHC 32.1 g/dL (32.0-37.0); MCV 88.3 fL (80.0-97.0); NRBC Per 100 WBC 0 /100 WBCS (0.0-0.0); Platelet Count 167 X 10*3/uL (140-440); RBC 4.62 X 10*6/uL (4.10-5.20); RDW 13.6 % (11.5-14.5)
[2022-11-09 16:44] LABS: ALT 26 U/L (8-44); AST 23 U/L (13-35); African American GFR (CKD) 77.8 (60.0-200.0); Albumin 4.9 g/dL (3.8-4.9); Albumin/Globulin Ratio 1.66 (1.60-3.17); Alkaline Phosphatase 88 U/L (41-126); BUN/Creat Ratio 15.42 Ratio (12.00-20.00); Blood Urea Nitrogen 14.2 mg/dL (9.0-27.0); Calcium 10.1 mg/dL (8.7-10.3); Carbon Dioxide 24.8 mmol/L (20.0-27.5); Chloride 104 mmol/L (96-109); Chol/HDL Ratio 1.96 Ratio; Glucose 93 mg/dL (70-110); LDL Cholesterol,Calculated 49.3 mg/dL (0.0-131.0); Non-African American GFR(CKD) 67.1 (60.0-200.0); Potassium 4.1 mmol/L (3.5-5.5); Sodium 141 mmol/L (135-145); Total Protein 7.9 g/dL (6.2-8.2); VLDL Calculation 5.72 mg/dL (5.00-40.00)
== END | disposition home or self-care (01) ==
LOC: LABWHC1 07:40
PROVIDERS: ATTEND Family Medicine
DX: I10 Essential (primary) hypertension (principal); E11.9 Type 2 diabetes mellitus without complications; E78.5 Hyperlipidemia, unspecified
CPT/HCPCS: 36415; 80053; 80061; 83036; 84443; 85027

== ENCOUNTER → 2023-03-01 | Outpatient (CLI) | payer OTHER ==
[2023-03-01 15:34] LABS: HCT 40.8 % (37.2-46.3); HGB 13.1 d/dL (12.0-15.0); MCH 28.8 pg (27.0-32.0); MCHC 32.1 d/dL (32.0-37.0); MCV 89.7 FL (80.0-97.0); Mean Platelet Volume 12.2 FL (9.5-12.2); NRBC Per 100 WBC 0 X 10*3/uL (0.00-0.01); Platelet Count 168 X 10*3/uL (140-440); RBC 4.55 X 10*6/uL (4.10-5.20); RDW 13.6 % (11.5-14.5); WBC 4.24 X 10*3/uL (4.50-10.00)
[2023-03-01 16:20] LABS: ALT 20 U/L (8-44); AST 23 U/L (13-35); Albumin 4.7 d/dL (3.8-4.9); Albumin/Globulin Ratio 1.74 Ratio (1.60-3.17); Alkaline Phosphatase 81 U/L (41-126); BUN/Creat Ratio 16.89 Ratio (12.00-20.00); Blood Urea Nitrogen 15.2 mg/dL (9.0-27.0); Calcium 9.7 mg/dL (8.7-10.3); Carbon Dioxide 26.9 mmol/L (21.6-31.8); Chloride 109 mmol/L (96-109); Globulin 2.7 d/dL (1.6-3.3); Glucose 108 mg/dL (70-110); LDL Cholesterol,Calculated 52.5 mg/dL (0.0-131.0); Potassium 4.6 mmol/L (3.5-5.5); Sodium 145 mmol/L (135-145); Total Bilirubin 0.4 mg/dL (0.3-1.2); Total Protein 7.4 d/dL (6.2-8.2); VLDL Calculation 5.98 mg/dL (5.00-40.00)
== END | disposition home or self-care (01) ==
LOC: LABWHC1 10:24
PROVIDERS: ATTEND Family Medicine
DX: I10 Essential (primary) hypertension (principal); E78.5 Hyperlipidemia, unspecified; E11.9 Type 2 diabetes mellitus without complications
CPT/HCPCS: 36415; 80053; 80061; 83036; 84443; 85027

== ENCOUNTER → 2023-06-06 | Outpatient (CLI) | payer OTHER ==
[2023-06-06 11:10] LABS: HCT 39.6 % (37.2-46.3); HGB 13.2 d/dL (12.0-15.0); MCH 28.9 pg (27.0-32.0); MCHC 33.3 d/dL (32.0-37.0); MCV 86.7 FL (80.0-97.0); Mean Platelet Volume 11.8 FL (9.5-12.2); NRBC Per 100 WBC 0 X 10*3/uL (0.00-0.01); Platelet Count 162 X 10*3/uL (140-440); RBC 4.57 X 10*6/uL (4.10-5.20); RDW 13.7 % (11.5-14.5); WBC 5.31 X 10*3/uL (4.50-10.00)
[2023-06-06 11:40] LABS: ALT 16 U/L (8-44); AST 22 U/L (13-35); Albumin 4.4 d/dL (3.8-4.9); Albumin/Globulin Ratio 1.63 Ratio (1.60-3.17); Alkaline Phosphatase 95 U/L (41-126); Calcium 9.3 mg/dL (8.7-10.3); Carbon Dioxide 27.9 mmol/L (21.6-31.8); Chloride 108 mmol/L (96-109); Chol/HDL Ratio 1.85 Ratio; Globulin 2.7 d/dL (1.6-3.3); Glucose 99 mg/dL (70-110); Potassium 4.2 mmol/L (3.5-5.5); Sodium 146 mmol/L (135-145); Total Bilirubin 0.3 mg/dL (0.3-1.2); Total Protein 7.1 d/dL (6.2-8.2)
== END | disposition home or self-care (01) ==
LOC: LABWHC1 06:52
PROVIDERS: ATTEND Family Medicine
DX: I10 Essential (primary) hypertension (principal); E11.9 Type 2 diabetes mellitus without complications; M85.80 Other specified disorders of bone density and structure, unspecified site; Z98.890 Other specified postprocedural states
CPT/HCPCS: 36415; 80053; 80061; 83036; 84443; 85027

== ENCOUNTER → 2023-08-01 | Outpatient (CLI) | payer OTHER ==
--- NOTE | 2023-08-02 15:41 | MM ---
Reason for Exam: Screening (asymptomatic). Last mammogram was performed 1 year(s) and 3 month(s) ago. Patient History: Menarche at age 12. Patient has no children. Postmenopausal. Risk Values: Aissatou 5 year model risk: 1.5%. NCI Lifetime model risk: 6.7%. Prior Study Comparison: 03/24/2021 Bilateral Screening Mammogram, [facility]. 04/21/2022 Bilateral Screening Mammogram, [facility]. 05/19/2022 Bilateral Diagnostic Mammogram, [facility]. Tissue Density: There are scattered fibroglandular densities. Findings: Analyzed By CAD. There are symmetrical stable. There are multiple calcifications present bilaterally. Some grouped benign-appearing calcifications are present. There are some nonspecific calcifications in the upper outer 10:00 position right breast. Additional workup is recommended with magnification views No suspicious groups of microcalcifications, spiculated or lobular masses, architectural distortion or other secondary signs of malignancy are mammographically apparent. Overall Assessment: Incomplete: need additional imaging evaluation, BI-RAD 0 Management: Diagnostic Mammogram of the right breast. A negative mammogram report should not preclude additional follow up of suspicious palpable abnormalities. Patient should continue monthly self breast exam. A clinical breast exam by your physician is recommended on an annual basis and results should be correlated with mammographic findings. Electronically signed and approved by: Neil Rebolledo D.O. Radiologis
== END | disposition home or self-care (01) ==
LOC: RADMAMWWP 07:14
PROVIDERS: ATTEND Family Medicine
DX: Z12.31 Encounter for screening mammogram for malignant neoplasm of breast (principal); Z78.0 Asymptomatic menopausal state
CPT/HCPCS: 77063; 77067

== ENCOUNTER → 2023-08-11 | Outpatient (CLI) | payer OTHER ==
--- NOTE | 2023-08-11 08:03 | MM ---
Reason for Exam: Additional evaluation requested from abnormal screening. Last screening mammogram was performed less than 1 month ago. Patient History: Menarche at age 12. Patient has no children. Postmenopausal. Risk Values: Aissatou 5 year model risk: 1.5%. NCI Lifetime model risk: 6.7%. Prior Study Comparison: 03/24/2021 Bilateral Screening Mammogram, [facility]. 04/21/2022 Bilateral Screening Mammogram, [facility]. 05/19/2022 Bilateral Diagnostic Mammogram, [facility]. 08/01/2023 Bilateral MG 3D screening mammo w/cad, [facility]. Tissue Density: Right: There are scattered fibroglandular densities. Findings: Analyzed By CAD. Grouped calcifications right breast 7.6 cm from nipple no upper aspect on MLO view and posterior nipple line on CC view around 12:00. Overall Assessment: Suspicious, BI-RAD 4 Management: Stereotactic Core Biopsy of the right breast. Results were given to the patient verbally at the time of exam. Patient should continue monthly self-breast exams. A clinical breast exam by your physician is recommended on an annual basis. This exam should not preclude additional follow-up of suspicious palpable abnormalities. Note on Aissatou scores and lifetime risk: 1. A Aissatou score greater than 3% is considered moderate risk. If this is the case, consider specialist referral to assess eligibility for a risk reducing agent. 2. If overall lifetime risk for the development of breast cancer is 20% or higher, the patient may qualify for future screening with alternating mammogram and breast MRI. Electronically signed and approved by: Shorty Whitten DO
== END | disposition home or self-care (01) ==
LOC: RADMAMWWP 06:50
PROVIDERS: ATTEND Family Medicine
DX: R92.321 Mammographic fibroglandular density, right breast (principal); Z78.0 Asymptomatic menopausal state
CPT/HCPCS: 77061; 77065

== ENCOUNTER → 2023-09-01 | Outpatient (CLI) | payer OTHER ==
[2023-09-01 08:15] VITALS: BP 153/89; PULSE 80; RESP 18; TEMP 98.3
--- NOTE | 2023-09-01 08:43 | P.PCN ---
Date of Procedure: 09/01/23 Preoperative Diagnosis: Microcalcifications of concern right breast Postoperative Diagnosis: Same Procedure(s) Performed: Stereotactic core biopsy right breast Anesthesia: local Surgeon: Jennifer Vergara Pathology: other (Breast tissue with microcalcifications of concern and specimen) Condition: stable Disposition: same day Indications for Procedure: Microcalcifications of concern right breast Operative Findings: Radiograph of the specimen reveals microcalcifications of concern Description of Procedure: The patient was noted on the routine mammogram to have microcalcifications of concern 12 o'clock position in the upper aspect of the right breast. Stereotactic core biopsy was recommended. Risks and benefits of the procedure were discussed with the patient and she wished to proceed. The patient was brought to the sterotactic core biopsy. She was positioned in the upright chair. A data sme film was obtained. The area of concern was identified. The area was targeted. The breast was prepped using antiseptic. 20 mL of 1% lidocaine were used to anesthetize the area of concern. A 9-gauge vacuum-assisted core rotating biopsy needle was driven to the correct target. A prefire film was obtained. The needle was noted to be in the correct location. The needle was fired. Post fire film revealed the needle to be in the correct location. 12 core biopsy specimens were obtained. Radiograph of the specimen revealed the calcifications of concern had been sampled. A secure sera top-hat clip was placed. The patient tolerated the procedure in stable condition. Specimen sent to pathology and the patient will follow-up with Dr. Carmichael next week.
== END ==
LOC: WWCWWP 07:46
PROVIDERS: ATTEND Surgery
DX: R92.0 Mammographic microcalcification found on diagnostic imaging of breast (principal); Z88.0 Allergy status to penicillin

== ENCOUNTER → 2023-09-01 | Day surgery (SDC) | payer OTHER ==
--- NOTE | 2023-09-01 08:01 | P.GSHP ---
History of Present Illness H&P Date: 09/01/23 Chief Complaint: abnormal right breast mammogram Ritika is a 62-year-old female who had a routine screening mammogram performed on . This revealed an area of concern in the right breast. A diagnostic mammogram was performed on [id number]. This revealed calcifications of concern in the upper breast at the 12 o'clock position. Stereotactic core biopsy was recommended. She was seen in consultation for Dr. Garza. She does not feel any lumps masses or nodules of concern in either breast. This was found on a routine mammogram. She had a biopsy on her right breast in the remote past which was benign, this was done percutaneously. She is not complaining of any trauma or infection in the breast. Caffeine: none nicotine: none chocolate: occasional BCP: none Family History: no history of cancer Hormonal History: menarche: 12 G0 menoapuase: 51 hormone: none Surgical History: Gallbladder parathyroid surgery Kidney stone surgery Medical History: HTN boarderline diabetes glaucoma Social history: Nicotine: Negative Alcohol:none drugs: none - Constitutional Constitutional: Denies chills, Denies fever - EENT Eyes: denies blurred vision, denies pain Ears: deny: decreased hearing, tinnitus Ears, nose, mouth and throat: Denies headache, Denies sore throat - Breasts Breasts: bilateral: as per HPI - Cardiovascular Cardiovascular: Denies chest pain, Denies shortness of breath - Respiratory Respiratory: Denies cough, Denies 7 - Gastrointestinal Gastrointestinal: Denies abdominal pain, Denies diarrhea, Denies nausea, Denies vomiting - Genitourinary (Female) Genitourinary: Denies dysuria, Denies hematuria - Musculoskeletal Musculoskeletal: Denies myalgias - Integumentary Integumentary: Denies pruritus, Denies rash - Neurological Neurological: Denies numbness, Denies weakness - Psychiatric Psychiatric: Denies anxiety, Denies depression - Endocrine Endocrine: Denies fatigue, Denies weight change - Hematologic/Lymphatic Comment: none - Allergic/Immunologic Allergic/Immunologic: Reports seasonal allergies Past Medical History Past Medical History: Diabetes Mellitus, Eye Disorder, Hyperlipidemia, Hypertension Additional Past Medical History / Comment(s): GLAUCOMA, hx parathyroid surgery., constipation., states stomach aches . History of Any Multi-Drug Resistant Organisms: None Reported Past Surgical History: Cholecystectomy Additional Past Surgical History / Comment(s): COLONOSCOPY, Parathyroid procedure, kidney stone proc. Right breast cyst asp 2004? Past Anesthesia/Blood Transfusion Reactions: No Reported Reaction Past Psychological History: No Psychological Hx Reported Smoking Status: Never smoker Past Alcohol Use History: None Reported Past Drug Use History: None Reported - Past Family History Mother Family Medical History: No Reported History Medications and Allergies Home Medications Medication Instructions Recorded Confirmed Type Benazepril HCl 10 mg PO DAILY 11/14/17 08/16/23 History metFORMIN HCL [Glucophage Xr] 500 mg PO DAILY 11/14/17 08/16/23 History amLODIPine BESYLATE 5 mg PO DAILY 03/17/20 08/16/23 History Rosuvastatin [Crestor] 10 mg PO DAILY 08/16/23 08/16/23 History Allergies Allergy/AdvReac Type Severity Reaction Status Date / Time Penicillins Allergy Rash/Hives Verified 08/16/23 09:05 Surgical - Exam - General no distress - Eyes normal ocular movement - Neck trachea midline - Respiratory normal respiratory effort, clear to auscultation - Cardiovascular Rhythm: regular Heart Sounds: normal: S1, S2 - Abdomen Abdomen: soft, non tender, no guarding, no rigid, no rebound - Integumentary normal turgor - Neurologic no disoriented, no combative - Musculoskeletal normal gait, normal posture - Psychiatric oriented to time, oriented to person, oriented to place, speech is normal, memory intact Breast exam: BRA: 38C Inspection: bilateral grade 3 ptosis palpation: right breast: Multi-positional exam no dominant masses or nodules of concern right axilla: No adenopathy of concern left breast: Multi-positional exam no dominant masses or nodules of concern left axilla: No adenopathy of concern Results Mammogram was reviewed with Dr. Rebolledo from radiology, calcifications of concern noted in the right breast in the upper aspect at approximately 12:00, no lesions of concern noted in the left breast no other lesions of concern noted in the right breast Assessment and Plan Assessment: Impression: Mammographic abnormality right breast/microcalcifications of concern 12:00 upper aspect Plan: Stereotactic core biopsy right breast Risk and benefits of the procedure discussed with the patient. Risk include but are not limited to bleeding, infection, reaction to the anesthetic. If tissue acquisition were felt to be inadequate further tissue acquisition may be necessary. If the lesion were felt to be discordant biopsy and pathology and further tissue acquisition may be necessary. The patient understands and wishes to proceed. Cc: Dr. Garza
--- NOTE | 2023-09-01 10:56 | MM ---
Date of Procedure: 09/01/23 Preoperative Diagnosis: Microcalcifications of concern right breast Postoperative Diagnosis: Same Procedure(s) Performed: Stereotactic core biopsy right breast Anesthesia: local Surgeon: Jennifer Vergara Pathology: other (Breast tissue with microcalcifications of concern and specimen) Condition: stable Disposition: same day Indications for Procedure: Microcalcifications of concern right breast Operative Findings: Radiograph of the specimen reveals microcalcifications of concern Description of Procedure: The patient was noted on the routine mammogram to have microcalcifications of concern 12 o'clock position in the upper aspect of the right breast. Stereotactic core biopsy was recommended. Risks and benefits of the procedure were discussed with the patient and she wished to proceed. The patient was brought to the sterotactic core biopsy. She was positioned in the upright chair. A repairer and checker film was obtained. The area of concern was identified. The area was targeted. The breast was prepped using antiseptic. 20 mL of 1% lidocaine were used to anesthetize the area of concern. A 9-gauge vacuum-assisted core rotating biopsy needle was driven to the correct target. A prefire film was obtained. The needle was noted to be in the correct location. The needle was fired. Post fire film revealed the needle to be in the correct location. 12 core biopsy specimens were obtained. Radiograph of the specimen revealed the calcifications of concern had been sampled. A secure sera top-hat clip was placed. The patient tolerated the procedure in stable condition. Specimen sent to pathology and the patient will follow-up with Dr. Carmichael next week. SAM
== END ==
LOC: RADMAMWWP 07:05
PROVIDERS: ATTEND Surgery
DX: N60.81 Other benign mammary dysplasias of right breast (principal); R92.1 Mammographic calcification found on diagnostic imaging of breast; I10 Essential (primary) hypertension; E11.9 Type 2 diabetes mellitus without complications; H40.9 Unspecified glaucoma; E78.5 Hyperlipidemia, unspecified; H57.9 Unspecified disorder of eye and adnexa; Z90.49 Acquired absence of other specified parts of digestive tract; Z87.442 Personal history of urinary calculi
CPT/HCPCS: 88305; 19081; A4648

== ENCOUNTER → 2023-09-06 | Outpatient (CLI) | payer OTHER ==
--- NOTE | 2023-09-06 12:21 | P.PN ---
Subjective Progress Note Date: 09/06/23 Principal diagnosis: fibrocystic breast changes Ritika is a 62 year old female status post right breast stero biopsy on 09-01-23. Her pathology was benign concordant. The patient is doing well at this time. Objective - Constitutional General appearance: Present: cooperative - Neck Neck: Present: normal ROM - Respiratory Respiratory: bilateral: CTA - Cardiovascular Heart sounds: normal: S1, S2 - Integumentary Integumentary Comment(s): biopsy site right breast clean and dry, no evidence of any infection or hematoma Integumentary: Present: normal turgor Assessment and Plan Assessment: Impression: Fibrocystic breast changes [place] [id number] benign concordant Plan: Repeat right breast mammogram 6 months with examination at that time CC: Dr. Garza
[2023-09-06 12:39] VITALS: BP 175/80; PULSE 103; RESP 17; TEMP 98.1
== END ==
LOC: WWCWWP 11:34
PROVIDERS: ATTEND Surgery
DX: N60.11 Diffuse cystic mastopathy of right breast (principal); Z98.890 Other specified postprocedural states; Z88.0 Allergy status to penicillin

== ENCOUNTER → 2024-02-05 | Outpatient (CLI) | payer OTHER ==
--- NOTE | 2024-02-06 11:00 | MM ---
Reason for Exam: Follow-up at short interval from prior study. Last screening mammogram was performed 6 month(s) ago. Patient History: Menarche at age 12. Patient has no children. Postmenopausal. Previous Hyperplasia w/o Atypia at age 62. 09/01/2023, Benign MG stereo VAD BX RT on the right side. Risk Values: Aissatou 5 year model risk: 1.5%. NCI Lifetime model risk: 6.5%. Prior Study Comparison: 05/19/2022 Bilateral Diagnostic Mammogram, [facility]. 08/01/2023 Bilateral MG 3D screening mammo w/cad, [facility]. 08/11/2023 Right MG 3D work up w/cad RT, [facility]. Tissue Density: Right: The breasts are heterogeneously dense, which may obscure small masses. Findings: Analyzed By CAD. Microclip marker noted from prior breast biopsy. No new or suspicious microcalcifications evident at this time. No evidence for mass. Overall Assessment: Benign, BI-RAD 2 Management: Screening Mammogram of both breasts in 6 months. . Results were given to the patient verbally at the time of exam. Patient should continue monthly self-breast exams. A clinical breast exam by your physician is recommended on an annual basis. This exam should not preclude additional follow-up of suspicious palpable abnormalities. Note on Aissatou scores and lifetime risk: 1. A Aissatou score greater than 3% is considered moderate risk. If this is the case, consider specialist referral to assess eligibility for a risk reducing agent. 2. If overall lifetime risk for the development of breast cancer is 20% or higher, the patient may qualify for future screening with alternating mammogram and breast MRI. Electronically signed and approved by: Ramu Feliciano M.D. Radiologis
== END | disposition home or self-care (01) ==
LOC: RADMAMWWP 08:54
PROVIDERS: ATTEND Surgery
DX: R92.331 Mammographic heterogeneous density, right breast (principal); R92.8 Other abnormal and inconclusive findings on diagnostic imaging of breast; Z78.0 Asymptomatic menopausal state
CPT/HCPCS: 77061; 77065

== ENCOUNTER → 2024-02-09 | Outpatient (CLI) | payer OTHER ==
[2024-02-09 13:14] VITALS: BP 153/75; PULSE 91; RESP 17; TEMP 98.7
--- NOTE | 2024-02-09 13:23 | P.PN ---
Subjective Progress Note Date: 02/09/24 02-09-24 Chief Complaint: abnormal right breast mammogram Ritika is a 63-year-old female who had a routine screening mammogram performed on . This revealed an area of concern in the right breast. A diagnostic mammogram was performed on [id number]. This revealed calcifications of concern in the upper breast at the 12 o'clock position. Stereotactic core biopsy was recommended. She was seen in consultation for Dr. Garza. She did not feel any lumps masses or nodules of concern in either breast. This was found on a routine mammogram. She had a biopsy on her right breast in the remote past which was benign, this was done percutaneously. She was not complaining of any trauma or infection in the breast. Stero biopsy of the right breast done on 09-01-23, benign concordant. Repeat right breast mammogram on 02-05-24 BIRAD 2. This was personally reviewed. She is not complaining of any new lumps masses or nodules of concern in either breast Caffeine: none nicotine: none chocolate: occasional BCP: none Family History: no history of cancer Hormonal History: menarche: 12 G0 menoapuase: 51 hormone: none Surgical History: Gallbladder parathyroid surgery Kidney stone surgery Medical History: HTN boarderline diabetes glaucoma Social history: Nicotine: Negative Alcohol:none drugs: none - Constitutional Constitutional: Denies chills, Denies fever - EENT Eyes: denies blurred vision, denies pain Ears: deny: decreased hearing, tinnitus Ears, nose, mouth and throat: Denies headache, Denies sore throat - Breasts Breasts: bilateral: as per HPI - Cardiovascular Cardiovascular: Denies chest pain, Denies shortness of breath - Respiratory Respiratory: Denies cough - Gastrointestinal Gastrointestinal: Denies abdominal pain, Denies diarrhea, Denies nausea, Denies vomiting - Genitourinary (Female) Genitourinary: Denies dysuria, Denies hematuria - Musculoskeletal Musculoskeletal: Denies myalgias - Integumentary Integumentary: Denies pruritus, Denies rash - Neurological Neurological: Denies numbness, Denies weakness - Psychiatric Psychiatric: Denies anxiety, Denies depression - Endocrine Endocrine: Denies fatigue, Denies weight change - Hematologic/Lymphatic Comment: none - Allergic/Immunologic Allergic/Immunologic: Reports seasonal allergies Past Medical History Past Medical History: Diabetes Mellitus, Eye Disorder, Hyperlipidemia, Hypertension Additional Past Medical History / Comment(s): GLAUCOMA, hx parathyroid surgery., constipation., states stomach aches . History of Any Multi-Drug Resistant Organisms: None Reported Past Surgical History: Cholecystectomy Additional Past Surgical History / Comment(s): COLONOSCOPY, Parathyroid procedure, kidney stone proc. Right breast cyst asp 2004? Past Anesthesia/Blood Transfusion Reactions: No Reported Reaction Past Psychological History: No Psychological Hx Reported Smoking Status: Never smoker Past Alcohol Use History: None Reported Past Drug Use History: None Reported - Past Family History Mother Family Medical History: No Reported History Medications and Allergies Home Medications Medication Instructions Recorded Confirmed Type Benazepril HCl 10 mg PO DAILY 11/14/17 08/16/23 History metFORMIN HCL [Glucophage Xr] 500 mg PO DAILY 11/14/17 08/16/23 History amLODIPine BESYLATE 5 mg PO DAILY 03/17/20 08/16/23 History Rosuvastatin [Crestor] 10 mg PO DAILY 08/16/23 08/16/23 History Allergies Allergy/AdvReac Type Severity Reaction Status Date / Time Penicillins Allergy Rash/Hives Verified 08/16/23 09:05 Objective - Vital Signs Vital signs: Vital Signs Temp 98.7 F 02/09/24 13:11 Pulse 91 02/09/24 13:11 Resp 17 02/09/24 13:11 BP 153/75 02/09/24 13:11 Pulse Ox 100 02/09/24 13:11 FiO2 Intake & Output 02/08/24 02/09/24 02/09/24 18:59 06:59 18:59 Weight 79.379 kg - Constitutional General appearance: Present: cooperative - EENT Eyes: Present: EOMI ENT: Present: hearing grossly normal - Neck Neck: Present: normal ROM - Respiratory Respiratory: bilateral: CTA - Cardiovascular Heart sounds: normal: S1, S2 - Integumentary Integumentary: Present: normal turgor - Musculoskeletal Musculoskeletal: Present: gait normal - Psychiatric Psychiatric: Present: A&O x's 3, appropriate affect, intact judgment & insight - Additional findings Additional findings: Breast exam: BRA: 38C Inspection: bilateral grade 3 ptosis palpation: right breast: Multi-positional exam no dominant masses or nodules of concern right axilla: No adenopathy of concern left breast: Multi-positional exam no dominant masses or nodules of concern left axilla: No adenopathy of concern Assessment and Plan Assessment: Impression: Mammographic abnormality right breast/microcalcifications of concern 12:00 upper aspect; post stereotactic core biopsy benign concordant Fibrocystic breast changes Recent right breast mammogram 02-05-2024 benign, BI-RADS 2, personally reviewed Plan: Repeat bilateral mammogram in 6 months with physician exam at that time Patient to follow-up sooner any questions or concerns Cc: Dr. Garza
== END ==
LOC: WWCWWP 12:34
PROVIDERS: ATTEND Surgery
DX: R92.0 Mammographic microcalcification found on diagnostic imaging of breast (principal); R92.8 Other abnormal and inconclusive findings on diagnostic imaging of breast; N60.11 Diffuse cystic mastopathy of right breast; N60.12 Diffuse cystic mastopathy of left breast; Z88.0 Allergy status to penicillin

== ENCOUNTER → 2024-08-12 | Outpatient (CLI) | payer OTHER ==
--- NOTE | 2024-08-12 14:24 | MM ---
Reason for Exam: Additional evaluation requested from prior study. Last screening mammogram was performed 12 month(s) ago. Patient History: Menarche at age 12. Patient has no children. Postmenopausal. Previous Hyperplasia w/o Atypia at age 62. 09/01/2023, Benign MG stereo VAD BX RT on the right side. Risk Values: Aissatou 5 year model risk: 1.5%. NCI Lifetime model risk: 6.5%. Prior Study Comparison: 03/24/2021 Bilateral Screening Mammogram, [facility]. 04/21/2022 Bilateral Screening Mammogram, [facility]. 05/19/2022 Bilateral Diagnostic Mammogram, [facility]. 08/01/2023 Bilateral MG 3D screening mammo w/cad, [facility]. 08/11/2023 Right MG 3D work up w/cad RT, [facility]. 02/05/2024 Right MG 3D diag mammo w/cad RT, [facility]. Tissue Density: The breasts are heterogeneously dense, which may obscure small masses. Findings: Analyzed By CAD. There is a obvious 6.4 mm spiculated density at the 11:00 position right breast 5.4 cm from the nipple. Ultrasound is recommended for further evaluation. Additional clip is seen inferiorly right breast. No masses or distortion left breast. No suspicious calcifications left breast. Overall Assessment: Incomplete: need additional imaging evaluation, BI-RAD 0 Management: Diagnostic Breast Ultrasound of the right breast. . Results were given to the patient verbally at the time of exam. Patient should continue monthly self-breast exams. A clinical breast exam by your physician is recommended on an annual basis. This exam should not preclude additional follow-up of suspicious palpable abnormalities. Note on Aissatou scores and lifetime risk: 1. A Aissatou score greater than 3% is considered moderate risk. If this is the case, consider specialist referral to assess eligibility for a risk reducing agent. 2. If overall lifetime risk for the development of breast cancer is 20% or higher, the patient may qualify for future screening with alternating mammogram and breast MRI. [facility], , 08/12/2024 2:22 PM. Electronically signed and approved by: Ramu Feliciano M.D. Radiologis
--- NOTE | 2024-08-12 14:59 | USB ---
Reason for Exam: Additional evaluation requested from prior study. Patient History: Menarche at age 12. Patient has no children. Postmenopausal. Previous Hyperplasia w/o Atypia at age 62. 09/01/2023, Benign MG stereo VAD BX RT on the right side. Risk Values: Aissatou 5 year model risk: 1.5%. NCI Lifetime model risk: 6.5%. Technique: Method: Targeted. Prior Study Comparison: 08/01/2023 Bilateral MG 3D screening mammo w/cad, [facility]. 08/11/2023 Right MG 3D work up w/cad RT, [facility]. 02/05/2024 Right MG 3D diag mammo w/cad RT, [facility]. Findings: The upper outer quadrant of the right breast, the axilla of the right breast and the retroareolar of the right breast were scanned. Postbiopsy changes and clips noted at the right 12:00 position from prior stereotactic core biopsy. Overall Assessment: Benign, BI-RAD 2 Management: Screening Mammogram of both breasts in 1 year. A clinical breast exam by your physician is recommended on an annual basis and results should be correlated with mammographic findings. This exam should not preclude additional follow-up of suspicious palpable abnormalities. Results were given to the patient verbally at the time of exam. [facility], , 08/12/2024 2:57 PM. Electronically signed and approved by: Ramu Feliciano M.D. Radiologis
== END | disposition home or self-care (01) ==
LOC: RADMAMWWP 13:38
PROVIDERS: ATTEND Surgery
DX: R92.8 Other abnormal and inconclusive findings on diagnostic imaging of breast (principal); Z78.0 Asymptomatic menopausal state; R92.333 Mammographic heterogeneous density, bilateral breasts
CPT/HCPCS: 77062; 77066